=== PATIENT | male | born 1960 | race Caucasian/White ===

== ENCOUNTER 2018-01-26 10:58 | Day surgery (SDC) | payer OTHER ==
[2018-01-26] MEDS ORDERED: NS 1,000 ML IV (11:30)
[2018-01-26] MEDS ORDERED: LIDOCAINE 2% INJ 100 MG/5 ML SDV (FOR ANES.) As Ordered (11:40)
[2018-01-26] MEDS ORDERED: PROPOFOL 200 MG/20 ML VIAL As Ordered (11:40)
== END 2018-01-26 12:46 | disposition home or self-care (01) ==
LOC: M OPP 10:58
DX: Z12.11 Encounter for screening for malignant neoplasm of colon (principal); Z86.010 Personal history of colon polyps; D12.5 Benign neoplasm of sigmoid colon; K64.8 Other hemorrhoids; K57.30 Diverticulosis of large intestine without perforation or abscess without bleeding; E78.00 Pure hypercholesterolemia, unspecified; M19.90 Unspecified osteoarthritis, unspecified site; J44.9 Chronic obstructive pulmonary disease, unspecified; F17.210 Nicotine dependence, cigarettes, uncomplicated; Z79.82 Long term (current) use of aspirin; Z79.899 Other long term (current) drug therapy; Z83.3 Family history of diabetes mellitus; Z82.49 Family history of ischemic heart disease and other diseases of the circulatory system; Z80.52 Family history of malignant neoplasm of bladder; Z80.1 Family history of malignant neoplasm of trachea, bronchus and lung
CPT/HCPCS: 45385

== ENCOUNTER 2023-04-04 08:13 | Day surgery (SDC) | payer OTHER ==
[~2023-04-04] VITALS: Ht 175.3 cm; Wt 58.4 kg
[~2023-04-04 08:13] MED LIST: ASPI81TA26 PO; ATOR80TA59 PO; LIDOCAINE 2% 100MG/5ML SDV (FOR ANES.) As Ordered ONE; LIPI20TA PO; NS 1,000 ML IV ONE; OMEG10002 PO; VITA100067 PO; VITA100093 PO; propofoL 200 MG/20 ML VIAL As Ordered ONE
[2023-04-04 10:57] VITALS: BP 153/68; TEMP 97.5; O2SAT 97
== END 2023-04-04 11:01 | disposition home or self-care (01) ==
LOC: M OPP 08:13
PROVIDERS: ATTEND Internal Medicine Gastroenterology
DX: Z86.010 Personal history of colon polyps (principal); D12.2 Benign neoplasm of ascending colon; D12.5 Benign neoplasm of sigmoid colon; K57.30 Diverticulosis of large intestine without perforation or abscess without bleeding; K64.8 Other hemorrhoids; Z79.02 Long term (current) use of antithrombotics/antiplatelets